=== PATIENT | female | born 1965 | race Caucasian/White ===

== ENCOUNTER 2018-01-16 05:44 | Inpatient (IN) ==
[2018-01-16] MEDS ORDERED: Chlorhexidine Gluconate 2% 1 Pack (2 Cloths) TOPICAL SCH (06:30)
[2018-01-16] MEDS ORDERED: Metoprolol Tartrate 25 MG Tablet PO SCH (06:30)
[2018-01-16] MEDS ORDERED: Sodium Chlor 0.9% Inj 500 ML IV.SIG SCH (07:00)
[2018-01-16] MEDS ORDERED: Heparin - SQ 10,000 UNITS/ML Vial SQ SCH (07:00)
[2018-01-16] MEDS ORDERED: Naloxone Inj 0.4 MG/ML Vial IV.PUSH PRN (10:39)
[2018-01-16] MEDS ORDERED: Morphine Inj 4 MG/ML Vial IV.SIG ONE (10:39)
[2018-01-16] MEDS ORDERED: LORazepam 0.5 MG Tablet PO PRN (10:39)
[2018-01-16] MEDS ORDERED: Morphine Inj 30 MG/30 ML PCA.VIAL PCA PRN ×2 (10:39→11:07)
[2018-01-16] MEDS ORDERED: *morphine SULFATE 4 MG/ML PERIprocedure ONLY ONE ×2 (11:04→11:13)
[2018-01-16] MEDS ORDERED: fentaNYL Citrate Inj 100 MCG/2 ML Ampul ONE (11:10)
[2018-01-16] MEDS: KCL 20 mEq/D5W/NaCl 0.45% Inj 1,000 ML IV.CONT SCH ×2 (11:13→21:58)
[2018-01-16] MEDS ORDERED: Ketorolac Inj 30 MG/ML (IVP) Vial IV.PUSH SCH (12:00)
[2018-01-16] MEDS ORDERED: Ketorolac Inj 30 MG/ML (IVP) Vial IV.PUSH ONE (12:00)
[2018-01-16] MEDS ORDERED: Lidocaine PF 1% Inj 5 ML Syringe INFILTRATN ONE (12:00)
[2018-01-16] MEDS ORDERED: Phenylephrine/NS 1000 MCG/10ML Syringe IV.PUSH ONE (12:00)
[2018-01-16] MEDS ORDERED: Glycopyrrolate Inj 1 MG/5 ML Syringe IV.PUSH ONE (12:00)
[2018-01-16] MEDS ORDERED: Neostigmine Inj 5 MG/5 ML Syringe IV.PUSH ONE (12:00)
--- NOTE | 2018-01-16 16:04 | P.PNONC ---
Subjective Interval history: kitchen work supervisor/onc post op note patient is resting in bed c/o mild nausea pain controlled still feels sleepy at bedside Objective Vital Signs/Intake & Output: Vital Signs 01/16/18 06:54 01/16/18 11:00 01/16/18 11:15 Temperature 98.4 F 97.9 F Pulse Rate 76 74 65 Respiratory Rate 20 14 20 Blood Pressure 119/75 126/69 123/66 Pulse Oximetry 99 100 01/16/18 11:30 01/16/18 11:45 01/16/18 12:00 Temperature 97.3 F L Pulse Rate 67 62 62 Respiratory Rate 18 18 18 Blood Pressure 122/66 125/67 126/69 Pulse Oximetry 100 100 100 01/16/18 12:05 01/16/18 13:00 01/16/18 14:00 Temperature Pulse Rate 73 67 Respiratory Rate 18 15 17 Blood Pressure 124/59 L 128/65 Pulse Oximetry 100 100 01/16/18 14:30 Temperature Pulse Rate 68 Respiratory Rate 17 Blood Pressure 124/63 Pulse Oximetry 100 Intake & Output 01/15/18 01/16/18 01/16/18 18:59 06:59 18:59 Intake Total 700 / 700 Output Total 200 / 200 Balance 500 / 500 Weight 75 kg Intake: Anesthesia Amount 700 / 700 Output: Estimated Blood Loss 100 / 100 Urine Amount (Catheter) 100 / 100 3-way Urethral 100 / 100 Other: Weight On Admission 75 kg Laboratory Results: Laboratory Results - last 24 hr 01/16/18 07:25 Blood Type O Negative Antibody Screen Negative MTS Gel Crossmatch See Detail Medications: Active Medications Generic Name Dose Route Start Last Admin Trade Name Luther PRN Reason Stop Dose Admin Chlorhexidine Gluconate 3 pack 01/16/18 06:30 01/16/18 06:15 Chlorhexidine 2% Cloth TOPICAL 01/19/18 06:29 3 pack NURSE CARE MANAGER JORI Administration Lactated Ringer's 1,000 mls @ 30 mls/hr 01/16/18 06:30 01/16/18 07:30 Lr 1000 Ml Inj IV.SIG 01/19/18 06:29 30 mls/hr .Q24H JORI Administration Potassium Chloride/Dextrose/Sod Cl 1,000 mls @ 125 mls/hr 01/16/18 10:45 11:13 D5w/1/2ns + Kcl 20 Meq Inj IV.CONT 125 mls/hr .Q8H JORI Administration Morphine Sulfate 30 mg in 30 mls @ 0 mls/hr 01/16/18 11:07 01/16/18 11:35 Morphine Inj ARMATURE WINDER HELPER REPAIR 0 mls/hr UNSCH PRN Administration per ARMATURE WINDER HELPER REPAIR parameters 0 MG/HR Ondansetron HCl 4 mg 01/16/18 10:39 01/16/18 11:42 Zofran Inj IV.PUSH 4 mg Q6H PRN Administration NAUSEA OR VOMITING Povidone Iodine 1 applicatio 01/16/18 06:30 01/16/18 07:35 Betadine 5% Antisepsis Kit EACH NARE 01/19/18 06:29 1 applicatio NURSE CARE MANAGER JORI Administration Objective Remarks: GENERAL: Well-nourished, well-developed patient. SKIN: Warm and dry. HEAD: Normocephalic. EYES: No scleral icterus. No injection or drainage. CARDIOVASCULAR: Regular rate and rhythm without murmurs. RESPIRATORY: Breath sounds equal bilaterally. No accessory muscle use. GASTROINTESTINAL: Abdomen dressing is c/d/i EXTREMITIES: teds and scds MUSCULOSKELETAL: Adequate muscle tone. NEUROLOGICAL: No obvious focal deficit. Awake, alert, and oriented x3. PSYCHIATRIC: Appropriate mood and affect; insight and judgment normal. Assessment/Plan (1) Pelvic mass in female Code(s): R19.00 - Intra-abdominal and pelvic swelling, mass and lump, unspecified site Status: Resolved - Plan s/p X Lap hysterectomy and BSO, resection of pelvic mass post op orders in chart ARMATURE WINDER HELPER REPAIR for pain IV Toradol as scheduled Larkin to straight drain ADAT OOB to chair tomorrow IS to bedside per resp therapy anticipate discharge within the next 48-72 hours
[2018-01-16] MEDS: Ketorolac Inj 30 MG/ML (IVP) Vial IV.PUSH SCH ×2 (16:12→21:56)
[2018-01-16] MEDS ORDERED: [UNRECOGNIZED DRUG - OTHER] PO SCH (21:00)
[2018-01-17] MEDS: Ketorolac Inj 30 MG/ML (IVP) Vial IV.PUSH SCH ×2 (05:59→09:33)
[2018-01-17] MEDS: KCL 20 mEq/D5W/NaCl 0.45% Inj 1,000 ML IV.CONT SCH ×3 (06:04→19:53)
--- NOTE | 2018-01-17 07:03 | P.PN ---
Subjective Interval history: c/o some pain, nausea c/w surgery & anesthesia rested ok last night Physical Exam Vital signs: Vital Signs 01/16/18 11:00 01/16/18 11:15 01/16/18 11:30 Temperature 97.9 F Pulse Rate 74 65 67 Respiratory Rate 14 20 18 Blood Pressure 126/69 123/66 122/66 Pulse Oximetry 100 100 01/16/18 11:45 01/16/18 12:00 01/16/18 12:05 Temperature 97.3 F L Pulse Rate 62 62 Respiratory Rate 18 18 18 Blood Pressure 125/67 126/69 Pulse Oximetry 100 100 01/16/18 13:00 01/16/18 14:00 01/16/18 14:30 Temperature Pulse Rate 73 67 68 Respiratory Rate 15 17 17 Blood Pressure 124/59 L 128/65 124/63 Pulse Oximetry 100 100 100 01/16/18 17:17 01/16/18 20:00 01/16/18 22:26 Temperature 99.1 F 98.7 F Pulse Rate 71 77 Respiratory Rate 18 18 18 Blood Pressure 117/75 113/68 Pulse Oximetry 97 97 01/17/18 00:00 01/17/18 05:00 Temperature 98.5 F 98.3 F Pulse Rate 70 77 Respiratory Rate 18 20 Blood Pressure 109/67 115/64 Pulse Oximetry 98 97 Intake & Output 01/16/18 01/16/18 01/17/18 06:59 18:59 06:59 Intake Total 800 / 800 1390 / 1390 Output Total 200 / 200 200 / 200 Balance 600 / 600 1190 / 1190 Weight 75 kg Intake: IV 100 / 100 1000 / 1000 D5W/1/2NS + KCL 20 mEq Inj 1, 1000 / 1000 000 ML @ 125 mls/hr IV.CONT . Q8H [facility] Rx#:[id number] Ancef Inj 1,000 MG In NS Inj 100 / 100 100 ML @ 200 mls/hr IV.SIG RADIOLOGY RECEPTIONIST JORI Rx#:[id number] Oral 390 / 390 Anesthesia Amount 700 / 700 Output: Urine 200 / 200 Estimated Blood Loss 100 / 100 Urine Amount (Catheter) 100 / 100 3-way Urethral 100 / 100 Other: Weight On Admission 75 kg - Constitutional no acute distress - Routine HEENT Exam Eye: Present: PERRL - Routine Respiratory Exam Present: CTA bilaterally - Routine Cardiovascular Exam Present: RRR - Routine Abdominal Exam Present: soft, wound (clean, dry, dressing intact) - Routine Neurological Exam Present: alert, oriented X3 - Urinary Catheter Management 3-way Urethral Cath placed during this visit: yes Reason for continuing: Hourly intake/output Insertion date: 01/16/18 Insertion time: 08:15 Results - Labs Laboratory Results - last 24 hr 01/16/18 07:25 Blood Type O Negative Antibody Screen Negative MTS Gel Crossmatch See Detail Assessment and Plan - Assessment (1) Pelvic mass in female Code(s): R19.00 - Intra-abdominal and pelvic swelling, mass and lump, unspecified site Status: Resolved - Attending Attestation POD #1 doing well in early post-op period Findings, preliminary pathology reviewed OOB, spirometry, adat, d/c harris when ambulatory borderline uop, continue ivf, encourage po liquids labs pending q&a, she understands
[2018-01-17 08:20] LABS: Baso % (Auto) 0.1 % (0.0-2.0); Eos % (Auto) 0.1 % (0.0-4.0); Hematocrit 34.1 % (35.0-46.0); Hemoglobin 11.2 gm/dL (11.6-15.3); Lymph # (Auto) 0.9 th/mm3 (1.0-4.8); Lymph % (Auto) 10.2 % (9.0-44.0); Mean Corpuscular HGB Conc 32.9 % (32.0-36.0); Mean Corpuscular Hemoglobin 30.2 pg (27.0-34.0); Mean Corpuscular Volume 91.6 fL (80.0-100.0); Mean Platelet Volume 9.7 fL (7.0-11.0); Mono # (Auto) 0.8 th/mm3 (0.0-0.9); Mono % (Auto) 8.4 % (0.0-8.0); Neut # (Auto) 7.5 th/mm3 (1.8-7.7); Neut % (Auto) 81.2 % (16.0-70.0); Platelet Count 189 th/mm3 (150-450); Red Blood Count 3.72 mil/mm3 (4.00-5.30); Red Cell Distribution Width 12.9 % (11.6-17.2); White Blood Count 9.3 th/mm3 (4.0-11.0)
--- NOTE | 2018-01-17 08:25 | MP ---
cc: Rhona Mckenzie MD,Umair Gonzalez,Sienna ZAPATA DATE OF OPERATION: 01/16/2018 PREOPERATIVE DIAGNOSES: 1. Complex pelvic mass. 2. Enlarged uterus. POSTOPERATIVE DIAGNOSES: 1. Right ovarian mature cystic teratoma. 2. Uterine leiomyomas adenomyosis. PROCEDURE: Exploratory laparotomy, total abdominal hysterectomy, bilateral salpingo-oophorectomy (with resection of 15 cm right ovarian mass). SURGEON: Rhona Mckenzie MD BED AND BREAKFAST INNKEEPER: Yanci metallurgical laboratory assistant. ANESTHESIA: General endotracheal anesthesia. ESTIMATED BLOOD LOSS: 100 mL. URINE OUTPUT: 100 mL. IV FLUIDS: 2700 mL. HISTORY: A 52-year-old female found on exam and imaging to have a complex 15 cm mass thought to be of probable ovarian origin. It had some internal characteristics on radiographic studies suggestive of a mature cystic teratoma. CA-125 modestly elevated at 96. No radiographic evidence to suggest metastatic disease. Also, the uterus was enlarged, lobulated, retroverted with the fundus somewhat wedged in the cul-de-sac. Preliminary pathology confirmed a right ovarian mature cystic teratoma (dermoid). The uterus had changes suggestive of leiomyomas and adenomyosis. There was no evidence of malignancy. The peritoneal anatomy was such that the liver and diaphragm edges were smooth. There were no peritoneal implants. The large and small bowel, appendix, adjacent mesentery all appeared normal. There was no adenopathy. No evidence to suggest metastatic disease. PROCEDURE: She was taken to the operating room, placed in dorsal lithotomy position after general endotracheal anesthesia was administered. A timeout was undertaken. She was identified by site recognition and hospital ID bracelet and the proposed procedure was reviewed and confirmed. She was carefully positioned in padded Xavier stirrups. Her arms were secured out to the sides. All sites were properly aligned with no malalignment or pressure points. She was prepped and draped in sterile fashion. Larkin catheter placed in the bladder. We confirmed that an orogastric tube was in the stomach on suction. We completed draping in anticipation of laparotomy. A midline incision made from the symphysis up toward the umbilicus, carried down to the fascia. The fascia was entered. The rectus muscles were in midline and the peritoneal cavity was entered and the incision was extended just enough to allow evaluation of the anatomy and to ensure that the mass was free of adhesions and able to be mobilized to the abdominal incision. Further evaluation confirmed that the mass was arising from and replacing the right ovary. The capsule was intact. The right round ligament was doubly suture ligated and transected. The anterior and posterior leaves of the broad ligament were opened. The right ureter was identified. The right infundibulopelvic ligament was isolated. The intervening peritoneum was opened. The infundibulopelvic ligament was isolated to the level of the pelvic brim where it was doubly clamped, cut, and suture ligated. The vesicouterine peritoneum was dissected off the lower uterine segment and cervix on the right and the posterior peritoneum was opened and the right uteroovarian ligament was skeletonized, clamped, and cut, thereby removing the right tube and ovary sent for frozen section analysis. The Bookwalter retractor was now used to assist in surgical exposure. Lap pads were used to retract the bowel. The left round ligament was doubly suture ligated, transected. The anterior and posterior leaves of the broad ligament were opened. Left ureter was identified. Left infundibulopelvic ligament was isolated to the level of the pelvic brim. The infundibulopelvic ligament was doubly clamped, cut, and suture ligated. The posterior peritoneum opened along the left side of the uterus and cervix and the left vesicouterine peritoneum dissected off the lower uterine segment and cervix and the left uterine vessels were skeletonized. The uterine vessels were clamped and back clamped bilaterally, cut, and suture ligated. Dissection was continued along the right side where the right cardinal, paracervical, and uterosacral ligaments were isolated, clamped, cut, and suture ligated in a stepwise fashion until a curved Morrow clamp could be placed below the cervix at the lateral vaginal angle. Attention was directed toward the left side where similarly after the uterine vessels were transected, the cardinal, paracervical, and uterosacral ligaments were isolated, clamped, cut, and suture ligated in a stepwise fashion until curved Morrow clamps could be placed below the cervix at the left lateral vaginal angle. The specimen was removed cutting sharply below the cervix, the cervix from the upper vagina. The specimen was inspected and the entire cervix was noted to be removed in the specimen including uterus, cervix, and the attached normal-appearing left tube and ovary. Vaginal cuff was closed starting at the corners where [id number] Vicryl sutures were used to secure the cuff to the posterior peritoneum as well as the edge of the uterosacral ligament and the cuff was closed, rendered hemostatic, and supported with interrupted [id number] Vicryl sutures. Small bleeders were rendered hemostatic with bipolar cautery. There was a good margin between the bladder edge and the vaginal cuff suture line. Good peristalsis of ureters. All sites were hemostatic and the preliminary pathology benign. It was felt that all reasonable surgical objectives had been completed. Hemostatic Crista was placed across the vaginal cuff and against the pelvic sidewalls to assist in continued hemostasis. The lap pads and Bookwalter retractor were removed. Visual and manual inspection confirmed there were no remaining foreign objects in the peritoneal cavity. The anatomy was again explored with findings as described above and preliminary counts were correct and attention was directed toward closing. The abdominal wall was closed with a running modified continuous Smead-Elizabeth fashion using 0 looped PDS, starting at the apices and meeting in the midpoint where the sutures were tied. The knot was buried within the wall of the fascia. The subcutaneous tissue was irrigated. Interrupted 2-0 Vicryl sutures were used to reapproximate Ck's fascia and the skin edge was closed with a running 3-0 Vicryl subcuticular followed by Steri-Strips and dry sterile dressing. She was returned to dorsal supine position. Final counts were correct. She was pending reversal of anesthesia when I left the operating room to proceed to the postanesthesia care unit and to speak to family members who were waiting in the surgical waiting area. MD JAIRO Daigle/jean , 07:36 AM , 07:49 AM
[2018-01-17 08:36] LABS: Anion Gap 5 meq/L (5-15); Blood Urea Nitrogen 3 mg/dL (7-18); Calcium 7.7 mg/dL (8.5-10.1); Carbon Dioxide 26.3 meq/L (21.0-32.0); Chloride 112 meq/L (98-107); Glomerular Filtration Rate Greater Than 89 mL/min (>89); Glucose,Random 115 mg/dL (74-106); Potassium 3.5 meq/L (3.5-5.1); Sodium 143 meq/L (136-145)
[2018-01-17] MEDS ORDERED: Acetaminophen 325 MG Tablet PO PRN (17:27)
[2018-01-18] MEDS: KCL 20 mEq/D5W/NaCl 0.45% Inj 1,000 ML IV.CONT SCH (04:57)
[2018-01-18] MEDS ORDERED: Simethicone 125 MG Chew Tablet PO PRN (08:21)
--- NOTE | 2018-01-18 08:36 | P.PNONC ---
Subjective Interval history: POD #2 patient doing very well one febrile episode yesterday, resolved patient has been OOB to ambulate every 2 hours regular diet only complaint is gas pains, will prescribe Gas X patient meets criteria for discharge, orders placed instructed patient on care of SS and restrictions will follow up in insurance salesperson/onc clinic in 2 weeks for final pathology Objective Vital Signs/Intake & Output: Vital Signs 01/17/18 12:00 01/17/18 16:00 01/17/18 20:00 Temperature 99.7 F H 101.6 F H 98.7 F Pulse Rate 76 79 70 Respiratory Rate 18 18 16 Blood Pressure 115/66 115/69 125/74 Pulse Oximetry 98 98 01/18/18 00:00 01/18/18 04:00 Temperature 98.3 F 98.1 F Pulse Rate 74 79 Respiratory Rate 16 16 Blood Pressure 139/84 139/90 Pulse Oximetry 97 96 Intake & Output 01/17/18 01/18/18 01/18/18 18:59 06:59 18:59 Intake Total 1100 / 1100 1999 Output Total 3350 / 3350 Balance -2250 / -2250 1999 Intake: IV 1100 / 1100 1999 / 1999 D5W/1/2NS + KCL 20 mEq Inj 1, 1000 / 1000 1999 / 1999 000 ML @ 125 mls/hr IV.CONT . Q8H [facility] Rx#:[id number] LR 1000 mL Inj 1,000 ML @ 30 100 / 100 mls/hr IV.SIG .Q24H [facility] Rx#: [id number] Output: Urine 3350 / 3350 Other: Post Void Residual 200 # Voids 3 Result Diagrams: 01/17/18 07:25 01/17/18 07:25 Laboratory Results: Laboratory Results - last 24 hr 01/17/18 07:25 Sodium 143 Potassium 3.5 Chloride 112 H Carbon Dioxide 26.3 Anion Gap 5 BUN 3 L Creatinine 0.64 Estimated GFR Greater than 89 Random Glucose 115 H Calcium 7.7 L Medications: Active Medications Generic Name Dose Route Start Last Admin Trade Name Freq PRN Reason Stop Dose Admin Chlorhexidine Gluconate 3 pack 01/16/18 06:30 01/16/18 06:15 Chlorhexidine 2% Cloth TOPICAL 01/19/18 06:29 3 pack BONE CHAR PULLER JORI Administration Lactated Ringer's 1,000 mls @ 30 mls/hr 01/16/18 06:30 01/18/18 06:06 Lr 1000 Ml Inj IV.SIG 01/19/18 06:29 Not Given .Q24H JORI Potassium Chloride/Dextrose/Sod Cl 1,000 mls @ 125 mls/hr 01/16/18 10:45 04:57 D5w/1/2ns + Kcl 20 Meq Inj IV.CONT 125 mls/hr .Q8H JORI Administration Morphine Sulfate 30 mg in 30 mls @ 0 mls/hr 01/16/18 11:07 01/16/18 11:35 Morphine Inj RESIDENTIAL MENTAL HEALTH WORKER 0 mls/hr UNSCH PRN Administration per RESIDENTIAL MENTAL HEALTH WORKER parameters 0 MG/HR Ondansetron HCl 4 mg 01/16/18 10:39 01/16/18 20:04 Zofran Inj IV.PUSH 4 mg Q6H PRN Administration NAUSEA OR VOMITING Povidone Iodine 1 applicatio 01/16/18 06:30 01/16/18 07:35 Betadine 5% Antisepsis Kit EACH NARE 01/19/18 06:29 1 applicatio BONE CHAR PULLER JORI Administration Sodium Chloride 2 ml 01/16/18 21:00 01/17/18 22:45 Ns Flush IV.FLUSH Not Given BID JORI Objective Remarks: GENERAL: Well-nourished, well-developed patient. SKIN: Warm and dry. HEAD: Normocephalic. EYES: No scleral icterus. No injection or drainage. CARDIOVASCULAR: Regular rate and rhythm without murmurs. RESPIRATORY: Breath sounds equal bilaterally. No accessory muscle use. GASTROINTESTINAL: Abdomen soft, non-tender, nondistended. dressing removed and SS are intact, old drainage noted MUSCULOSKELETAL: Adequate muscle tone. NEUROLOGICAL: No obvious focal deficit. Awake, alert, and oriented x3. PSYCHIATRIC: Appropriate mood and affect; insight and judgment normal. Assessment/Plan (1) Pelvic mass in female Code(s): R19.00 - Intra-abdominal and pelvic swelling, mass and lump, unspecified site Status: Resolved - Plan s/p X Lap hysterectomy and BSO, resection of pelvic mass post op orders in chart RESIDENTIAL MENTAL HEALTH WORKER for pain IV Toradol as scheduled Larkin to straight drain ADAT OOB to chair tomorrow IS to bedside per resp therapy anticipate discharge within the next 48-72 hours POD #2 patient meets criteria for discharge orders placed Gas X Colace 50mg daily leave SS intact OK to restart home meds follow up insurance salesperson/onc clinic in 2 weeks for final pathology patient instructed to call office with any concerns discussed with patient, RN and Dr. Mckenzie. Dr. Mckenzie in agreement for discharge.
== END 2018-01-18 09:06 | disposition home or self-care (01) ==
LOC: HSDI 05:44 → HCIN 15:34
PROVIDERS: ADMIT Obstetrics & Gynecology Gynecologic Oncology; ATTEND Obstetrics & Gynecology Gynecologic Oncology